=== PATIENT | female | born 1935 | race Caucasian/White ===

== ENCOUNTER 2016-07-11 10:17 | Emergency (ER) | payer MEDICARE, OTHER ==
[~2016-07-11 10:17] MED LIST: ADULT LOW DOSE81 M1 PO; ADVIL200 M1 PO; ALENDRONATE SODIUM; ALEVE220 MG PO; AMBIEN PAK5 MG PO; AMBIEN5 MG PO; ASCRIPTIN 325325 MG PO; ASPIRIN LOW STR81 MG PO; ASPIRIN325 MG PO; ATIVAN0.5 MG PO; AUGMENTIN 875-1 EAC2 PO; BACTRIM DS1 TAB PO; BUFFERED ASPIR325 MG PO; CALCIUM; CALCIUM600 M1 PO; CIPRO250 MG PO; CIPRO500 M1 PO; COLACE100 MG PO; CYMBALTA30 MG PO; DARVOCET-N 1001 EA PO; FLAGYL500 MG PO; FLOMAX0.4 MG PO; FOLIC ACID1 M1 PO; FOSAMAX70 MG PO; GLEEVEC PO; H PO; KLOR-CON M2020 MEQ PO; LEVAQUIN500 MG PO; LEVOTHYROXINE100 MCG PO; LUMIGAN2.5 ML OP; NORCO 10/3251 TA1 PO; NORCO 5-325 TA1 EACH PO; NORCO 5/325 TAB1 TAB PO; OMEPRAZOLE20 M3 PO; OMEPRAZOLE40 MG PO; OXYCODONE/APAP PO; PERCOCET 5/3251 TAB PO; PRILOSEC20 MG PO; PROBIOTIC1 EAC6 PO; SYNTHROID100 MCG PO; TRAVATAN5 ML OP; TYLENOL WITH C1 EACH PO; TYLENOL325 M2 PO; TYLENOL500 MG PO; UNITHROID PO; UNITHROID112 MCG PO; VISTARIL25 M1 PO; VITAMIN B12 IM; VITAMIN B121000 MCG PO; VITAMIN B1250 MCG PO; VITAMIN B12500 MCG PO; VITAMIN C PO; VITAMIN D1000 UNIT PO; VITAMIN D2; VITAMIN D31000 UNI4 PO; VITAMIN D32000 UNI1 PO; VITAMIN D35000 UNIT PO; VITAMIN E400 UNI1 PO; Vitamin C; ZANTAC150 MG PO; ZOFRAN4 M2 PO
[2016-07-11] MEDS ORDERED: NORCO 5-325 TA1 EACH PO (12:12)
[2016-11-16] MEDS ORDERED: TYLENOL EXTRA500 M1 PO (10:57)
[2016-11-16] MEDS ORDERED: LORAZEPAM2 MG/1 M4 PO/SL (10:58)
[2016-11-16] MEDS ORDERED: NORCO 5-325 TA1 EACH PO (10:59)
[2016-11-16] MEDS ORDERED: MORPHINE S100 MG/5 M PO/SL (10:59)
[2016-11-16] MEDS ORDERED: DURAGESIC1 EAC1 TOP (11:00)
[2016-11-16] MEDS ORDERED: FLEET ENEMA133 ML PR (11:01)
[2016-11-16] MEDS ORDERED: DULCOLAX10 MG PR (11:01)
[2016-11-16] MEDS ORDERED: SENOKOT-S TABL1 EACH PO (11:02)
[2016-11-16] MEDS ORDERED: COMPAZINE5 M2 PO (11:04)
== END 2016-07-11 12:24 ==
LOC: EDMED 10:17
DX: M79.641 Pain in right hand (principal); M19.90 Unspecified osteoarthritis, unspecified site; E03.9 Hypothyroidism, unspecified